=== PATIENT | male | born 1995 | race Caucasian/White ===

== ENCOUNTER 2022-07-25 12:58 | Emergency (ER) | payer MEDICAID, SELFPAY ==
[2022-07-25 13:14] VITALS: BP 177/82; PULSE 60; RESP 16; TEMP 36.8; O2SAT 98
--- NOTE | 2022-07-25 14:09 | ED.EXTPRO ---
HPI - Extremity Problem General Chief complaint: Extremity Problem,Nontraumatic Stated complaint: right hip pain X2 weeks Time Seen by Provider: 07/25/22 13:54 History of Present Illness HPI Narrative: 26-year-old male here for evaluation of right low back pain over the past week. Patient states that he has been exerting himself more frequently than usual lifting heavy boxes at work. Over the past several days he has noted a sharp pain in his right buttock that radiates down his right lower extremity. States it is sharp and shooting in nature. He has not attempted any pain medicine. He has been able to walk but she states it is painful. No direct trauma to the back. Denies any incontinence or retention of his bowel or bladder, saddle anesthesia, fevers or chills, nausea or vomiting. No IV drug use. Related Data Allergies Allergy/AdvReac Type Severity Reaction Status Date / Time No Known Allergies Allergy Verified 07/25/22 14:13 Review of Systems Review of Systems: Gen.: Denies fevers or chills Eyes: Denies eye pain or visual change ENT: Denies congestion Respiratory: Denies shortness of breath or cough CV: Denies chest pain or palpitations GI: Denies abdominal pain nausea, emesis or diarrhea denies burning, urgency, frequency or hematuria Musculoskeletal: Reports right back pain that radiates down his right leg Neuro: Denies numbness, tingling, weakness or focal weakness Skin: Denies rash Except as documented, all other systems reviewed and negative Exam Narrative: APPEARANCE: Well appearing, no pain in distress, well-nourished. Head: Normocephalic and atraumatic. EYES: PERRLA/EOMI, conjunctivae clear NOSE: No nasal drainage EARS: External ear normal in appearance THROAT: Oropharynx is clear. Mucous membranes are moist. NECK: Supple. No adenopathy, no masses. RESPIRATORY: Airway patent, respirations nonlabored. Clear to auscultation bilaterally, no rales, rhonchi, wheezing. CARDIOVASCULAR: Regular rate and rhythm without murmurs, rubs, or gallops. ABDOMINAL: Normoactive bowel sounds. Soft, nontender, nondistended. No rebound tenderness or guarding. MUSCULOSKELETAL: Straight leg raise positive on the right. No bony tenderness to palpation of C, T or L-spine. No bony tenderness to palpation of either hip. Extremities are warm and well-perfused. Moves all extremities well. No edema. NEURO: Normal speech. No focal neurologic deficits. SKIN: Skin is warm and dry. No rashes. PSYCHIATRIC: Normal affect/mood. Course Vital Signs Vital signs: Vital Signs Temperature 98.2 F 07/25/22 13:14 Pulse Rate 60 07/25/22 13:14 Respiratory Rate 16 07/25/22 13:14 Blood Pressure 177/82 H 07/25/22 13:14 Pulse Oximetry 98 07/25/22 13:14 Oxygen Delivery Room Air 07/25/22 13:14 Temperature 98.2 F 07/25/22 13:14 Pulse Rate 60 07/25/22 13:14 Respiratory Rate 16 07/25/22 13:14 Blood Pressure 177/82 H 07/25/22 13:14 Pulse Oximetry 98 07/25/22 13:14 Oxygen Delivery Room Air 07/25/22 13:14 MDM - Extremity (Nontraumatic) MDM Narrative Medical decision making narrative: 26-year-old male here for evaluation of pain to his right buttock over the past several days after lifting some heavy weights at work. He is nontoxic in appearance and has normal vital signs, no bony tenderness on exam or direct trauma to the area. Straight leg raise is positive. History and physical exam consistent with sciatica. No back pain red flags. He was given p.o. meds in the ED, encouraged him to follow-up with his primary care doctor as he may need low back imaging if his symptoms persist. Return precautions were discussed and he voiced understanding. Discharge Plan Discharge Clinical Impression: Sciatica Patient Disposition: Home, Self-Care Condition: Stable Instructions: Antibiotic Form, Sciatica (ED) Additional Instructions: Your symptoms today are consistent with sciatica. Alternate between Tyleno
[2022-07-25] MEDS: ACETAMINOPHEN 325 MG TABLET 650 MG PO (14:25)
[2022-07-25] MEDS: KETOROLAC 30 MG/ML VIAL (*BKC) IM (14:25)
[2022-07-25] MEDS: CYCLOBENZAPRINE HCL 5 MG TABLET PO (14:25)
== END 2022-07-25 14:39 | disposition home or self-care (01) ==
PROVIDERS: Emergency Provider Physician Assistant
DX: M54.41 Lumbago with sciatica, right side (principal)
CPT/HCPCS: 96372; 99283; A9270; J1885

== ENCOUNTER 2022-12-17 09:47 | Emergency (ER) | payer MEDICAID, SELFPAY ==
[2022-12-17 10:11] VITALS: BP 175/100; PULSE 74; RESP 14; TEMP 36.4; O2SAT 99
[2022-12-17 11:41] LABS: Basophils Absolute Auto 0.1 K/mm3 (0.0-0.1); Basophils Percent Auto 0.4 % (0.2-1.2); Eosinophils Absolute Auto 0.3 K/mm3 (0-0.3); Eosinophils Percent Auto 2.7 % (0-4.4); Hematocrit 43.2 % (42.0-52.0); Hemoglobin 14.6 g/dL (14.0-18.0); Immature Granulocyte Absolute 0.05 K/mm3 (0.00-0.031); Immature Granulocyte Percent A 0.4 % (0-0.5); Lymphocytes Absolute Auto 2.55 K/mm3 (0.9-3.2); Lymphocytes Percent Auto 20.5 % (18.3-44.2); Mean Corpuscular HGB Conc 33.8 g/dl (32-36); Mean Corpuscular Hemoglobin 30.5 pg (26-34); Mean Corpuscular Volume 90.2 fl (80-100); Mean Platelet Volume 10.2 fl (7.4-10.4); Monocytes Absolute Auto 0.9 K/mm3 (0.1-0.6); Monocytes Percent Auto 7.1 % (2.6-8.5); Neutrophils Absolute Auto 8.6 K/mm3 (1.3-6.7); Neutrophils Percent Auto 68.9 % (45.5-73.1); Platelet Count Result 236 k/mm3 (150-375); Red Blood Count 4.79 M/mm3 (4.6-6.20); Red Cell Distribution Width 12.2 % (11.5-14.5); White Blood Count 12.5 K/mm3 (4.5-10.0)
[2022-12-17 11:52] LABS: Alanine Aminotransferase 45 U/L (6-50); Albumin Level 4.5 g/dL (3.5-5.1); Alkaline Phosphatase 49 U/L (38-126); Anion Gap 3 mmol/L (8-16); Aspartate Amino Transferase 38 U/L (17-59); Bilirubin,Total 1.5 mg/dL (0.2-1.3); Blood Urea Nitrogen 17 mg/dL (9-20); Calcium 9.1 mg/dL (8.4-10.2); Carbon Dioxide 33 mmol/L (22-30); Chloride 102 mmol/L (98-107); Estimated CRCL calculation 163 ml/min; Estimated Glomerular Filt Rate > 60; Glucose 100 mg/dL (65-110); Potassium 4.1 mmol/L (3.4-5.0); Sodium 138 mmol/L (137-145)
[2022-12-17 11:56] LABS: INR 0.9; Prothrombin Time 12.8 Seconds (11.1-14.7)
--- NOTE | 2022-12-17 12:20 | ED.GENADULT ---
HPI - General Adult General Chief complaint: Unspecified Stated complaint: GI Bleed Time Seen by Provider: 12/17/22 10:55 History of Present Illness HPI narrative: This is a 27-year-old male with past history of hemorrhoids, who presents emergency department with bright red blood per rectum and some lightheadedness. The patient states today he had a bowel movement that was more painful than usual and he noted a significant amount of bright red blood in the toilet. He felt some lightheadedness at the time that has since resolved. He has no other abdominal pain or bleeding elsewhere. Related Data Allergies Allergy/AdvReac Type Severity Reaction Status Date / Time No Known Allergies Allergy Verified 07/25/22 14:13 Review of Systems Review of Systems: CONSTITUTIONAL: Denies fever, chills, or sweats. CARDIOVASCULAR: Denies chest pain, palpitations, or edema. RESPIRATORY: Denies cough or dyspnea. GASTROINTESTINAL: Bright red blood per rectum denies abdominal pain, nausea, vomiting, or diarrhea. GENITOURINARY: Denies dysuria or hematuria. SKIN: Denies rash or itching. MUSCULOSKELETAL: Denies back pain, joint pain, or myalgia. NEUROLOGIC: Denies headache, numbness, dizziness, or weakness. PSYCHIATRIC: Denies anxiety or depression. [facility] Past Medical History Medical History (Updated 12/18/22 @ 00:00 by Wu Muhammad) External hemorrhoids Surgical History Surgical History (Updated 12/17/22 @ 12:22 by Андрей Gill MD) No significant past surgical history Social History Social History (Updated 12/17/22 @ 12:22 by Андрей Gill MD) Smoking status: Never smoker Alcohol intake: never Substance use: never Exam Narrative: GENERAL: Well-developed, well-nourished, and in no acute distress. HEAD: Normocephalic, atraumatic. EYES: PERRLA and EOMI. CHEST: Clear to auscultation. No respiratory distress. No wheezes rales or rhonchi HEART: Regular rate and rhythm. No murmur heard. Normal peripheral pulses. ABDOMEN: Soft, nontender, nondistended, normal active bowel sounds. RECTAL: External hemorrhoid noted at the 9 o'clock position. There is tenderness with digital rectal exam and small amount of bright red blood. NEURO: No focal deficits. Alert and oriented x3. PSYCH: Normal mood and affect. Course Course Emergency Course: 12:23 - Exam is consistent with external hemorrhoids. The patient's hemoglobin is 14.6. White blood cell count slightly elevated at 12.5. Coags within normal limits. Chemistries demonstrate slight total bilirubin elevation of 1.5 but are otherwise unremarkable. Will discharge. Discussed return emerged precautions including signs/symptoms of symptomatic anemia. The patient voiced understanding and is comfortable with the plan. All questions answered to his satisfaction. Vital Signs Vital signs: Vital Signs Temperature 97.6 F 12/17/22 10:11 Pulse Rate 74 12/17/22 10:11 Respiratory Rate 14 12/17/22 10:11 Blood Pressure 175/100 H 12/17/22 10:11 Pulse Oximetry 99 12/17/22 10:11 Oxygen Delivery Room Air 12/17/22 10:11 Temperature 97.6 F 12/17/22 10:11 Pulse Rate 74 12/17/22 10:11 Respiratory Rate 14 12/17/22 10:11 Blood Pressure 175/100 H 12/17/22 10:11 Pulse Oximetry 99 12/17/22 10:11 Oxygen Delivery Room Air 12/17/22 10:11 Medical Decision Making MDM Narrative Medical decision making narrative: Plan: Labs, coags, reassess Differential Diagnosis Differential Diagnosis: Hemorrhoids, anal fissure, symptomatic anemia, metabolic abnormality, other Vital Signs Vital Signs: Vital Signs Temperature 97.6 F 12/17/22 10:11 Pulse Rate 74 12/17/22 10:11 Respiratory Rate 14 12/17/22 10:11 Blood Pressure 175/100 H 12/17/22 10:11 Pulse Oximetry 99 12/17/22 10:11 Oxygen Delivery Room Air 12/17/22 10:11 Temperature 97.6 F 12/17/22 10:11 Pulse Rate 74 12/17/22 10:11 Respiratory Rate 14
== END 2022-12-17 12:49 | disposition home or self-care (01) ==
PROVIDERS: Emergency Provider Preventive Medicine Aerospace Medicine
DX: K64.4 Residual hemorrhoidal skin tags (principal); K62.5 Hemorrhage of anus and rectum
CPT/HCPCS: 36415; 80053; 85025; 85610; 99283

== ENCOUNTER 2025-02-08 23:28 | Emergency (ER) | payer OTHER, SELFPAY ==
--- NOTE | ~2025-02-08 | XR_ITS ---
EXAM/ PROCEDURE: XR forearm LT 2V - 02/08/2025 23:45 CDT HISTORY: 29 years old Male with injury COMPARISON: None available TECHNIQUE: Three view(s) FINDINGS/ IMPRESSION: There are no fractures or dislocations.Joint spaces are within normal limits. Reviewed, dictated and finalized at location A.
--- NOTE | ~2025-02-08 | XR_ITS ---
EXAM/ PROCEDURE: XR wrist LT min 3V - 02/08/2025 23:45 CDT HISTORY: 29 years old Male with injury COMPARISON: None available TECHNIQUE: Three view(s) FINDINGS/ IMPRESSION: There are no fractures or dislocations.Joint spaces are within normal limits. Reviewed, dictated and finalized at location A.
[2025-02-08 23:29] VITALS: BP 141/86; PULSE 82; RESP 16; TEMP 36.8; O2SAT 99
[2025-02-09 02:45] VITALS: BP 123/77; PULSE 73; RESP 16; O2SAT 98
--- NOTE | 2025-02-09 03:52 | ED_ITS ---
HPI - Extremity Injury (Upper) General Chief Complaint: Extremity Injury, Upper Stated Complaint: left wrist injury Time Seen by Provider: 02/09/25 03:42 History of Present Illness HPI narrative: 29-year-old otherwise healthy male presenting with swelling and pain to the dorsal lateral aspect of his left forearm. 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 States that he feels like he may have overdone it recently. Knows that he is started developing pain and swelling to the lateral outside compartment his left forearm that slowly radiated into his thumb. 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 No sensory deficits. No traumatic injuries. No other pain, no pain extending to the elbow or towards the shoulder. No paresthesias or tingling in the thumb or fingers. No recent bug bites, puncture wounds or any other traumatic injuries to his knowledge. Has been in his normal state of health recently. Related Data Allergies Allergy/AdvReac Type Severity Reaction Status Date / Time No Known Allergies Allergy Verified 02/09/25 02:45 Review of Systems Review of Systems: As reviewed above in HPI [facility] Past Medical History Medical History External hemorrhoids Surgical History Surgical History No significant past surgical history Social History Social History Smoking status: Never smoker Alcohol intake: never Substance use: never Exam Narrative: GENERAL: [Well-appearing, well-nourished, and in no acute distress.] HEAD: [Normocephalic, atraumatic.] EYES: [PERRLA and EOMI.] ENT: Nares clear, no rhinorrhea or epistaxis. Mucous membranes moist. NECK: Supple. CHEST: [Clear to auscultation. No respiratory distress.] HEART: [Regular rate and rhythm]. No murmur heard. [Normal peripheral pulses.] ABDOMEN: [Soft, nondistended], [nontender], [No rigidity or guarding] EXTREMITIES: Swelling is appreciated over the dorsal lateral left forearm without any overlying skin changes concerning for infectious process or cellulitis. No redness erythema or warmth to the skin. Swelling seems isolated over the distribution of the pronator muscles into the left thumb consistent with patient's history of repetitive use injury. Slurry Blender strength 5/5, able to oppose each digit, no paresthesias in 2+ radial pulses. Soft compartments overall. SKIN: Warm, dry, no rash. NEURO: [No focal deficits]. Alert and oriented [x3.] PSYCH: [Normal mood and affect.] Course Vital Signs Vital signs: Vital Signs Temperature 36.8 C 02/08/25 23:29 Pulse Rate 82 02/08/25 23:29 Respiratory Rate 16 02/08/25 23:29 Blood Pressure 141/86 H 02/08/25 23:29 Pulse Oximetry 99 02/08/25 23:29 Oxygen Delivery Room Air 02/08/25 23:29 Temperature 36.8 C 02/08/25 23:29 Pulse Rate 67 02/09/25 05:00 Respiratory Rate 19 02/09/25 05:00 Blood Pressure 141/72 H 02/09/25 05:00 Pulse Oximetry 98 02/09/25 05:00 Oxygen Delivery Room Air 02/08/25 23:29 MDM - Extremity Injury (Upper) MDM Narrative Medical decision making narrative: 29-year-old otherwise healthy male presenting with swelling and pain to the dorsal lateral aspect of his left forearm. 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 States that he feels like he may have overdone it recently. Knows that he is started developing pain and swelling to the lateral outside compartment his left forearm that slowly radiated into his thumb. 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 No sensory deficits. No traumatic injuries. No other pain, no pain extending to the elbow or towards the shoulder. No paresthesias or tingling in the thumb or fingers. No recent bug bites, puncture wounds or any other traumatic injuries to his knowledge. Has been in his normal state of health recently. Swelling is appreciated over the dorsal lateral left forearm without any overlying skin changes concerning for infectious process or cellulitis. No redness erythema or warmth to the skin. Swelling seems isolated over the distribution of the pronator muscles into the left thumb consistent with patient's history of repetitive use injury. Slurry Blender strength 5/5, able to oppose each digit, no paresthesias in 2+ radial pulses. Soft compartments overall. Differential includes overuse injury, pronator syndrome, less likely myofascial inflammation or myositis. Low suspicion infectious process such as cellulitis based on exam. Patient is hemodynamically stable, x-rays obtained in triage that showed no acute osseous in the forearm or wrist. Symptoms consistent with overuse injury and he was given anti-inflammatories including Toradol IM and Toradol p.o. upon discharge. Discussed rest, ice, compression and even elevation to the level of the heart when sleeping as well as some workplace medications until fully healed. If symptoms recur we did refer him to Orthopedics. Patient expressed understanding of the instructions and safe for discharge home at this time. Medical Records Attestation: I reviewed the patient's medical records. Imaging Data Attestation: I personally reviewed and interpreted this imaging study as follows: My impression: No acute osseous abnormalities Discharge Plan Discharge Clinical Impression: Overuse injury, Brachioradialis muscle tenderness Patient Disposition: Home Condition: Stable Instructions: Antibiotic Form, Musculoskeletal Pain (ED) Additional Instructions: Symptoms consistent with overuse injury to the brachial radialis muscle area of the left forearm. We will prescribe you high strength anti-inflammatories as well as lidocaine patches and Robaxin for muscle relaxation. Follow-up with regular doctor. If symptoms persist despite therapies or worsen follow-up with orthopedics and return with any emergent concerns. No broken bones on x-ray. Patient Language: Thai Prescriptions: New ketorolac 10 mg tablet 10 mg PO Q8H PRN (Reason: pain) 5 Days Qty: 20 0RF Rx Instructions: maximum total duration of 5 days from all oral, intranasal, or parenteral formulations methocarbamol 750 mg tablet 750 mg PO TID PRN (Reason: pain) Qty: 20 0RF lidocaine 5 % adhesive patch,medicated 1 patch topical DAILY Qty: 15 0RF Rx Instructions: leave on most painful area for up to 12 hrs No Action cyclobenzaprine 5 mg tablet 5 mg PO HS PRN (Reason: muscle spasm) Qty: 10 0RF hydrocortisone acetate 25 mg suppository 25 mg RECTAL DAILY Qty: 12 0RF Follow-up/Referrals: Eloisa,Catherine Blair, FORENSIC MEDICAL EXAMINER [Primary Care Provider] - Stand Alone Forms: Work/School Release IP Time of Disposition: 03:58
[2025-02-09] MEDS: KETOROLAC (*BKC) 60 MG/2 ML VIAL IM (04:56)
[2025-02-09 05:00] VITALS: BP 141/72; PULSE 67; RESP 19; O2SAT 98
== END 2025-02-09 05:00 | disposition home or self-care (01) ==
PROVIDERS: Emergency Provider Student in an Organized Health Care Education/Training Program
DX: M70.832 Other soft tissue disorders related to use, overuse and pressure, left forearm (principal)
CPT/HCPCS: 73090; 73110; 96372; 99283; J1885

== ENCOUNTER 2025-05-12 04:19 | Emergency (ER) | payer OTHER, SELFPAY ==
--- NOTE | ~2025-05-12 | CT_ITS ---
CT HEAD NON-CONTRAST Clinical History: headache Comparison: None Technique: Unenhanced axial images skull base to vertex Coronal, sagittal reformats CT images acquired with automatic exposure control for dose reduction DLP: 530 mGy-cm Findings: Sulci, ventricles: Unremarkable. No intracerebral hemorrhage. No evidence acute territorial infarct. No mass effect, midline shift. Bony calvarium intact. Visualized paranasal sinuses: Clear. Mastoid air cells: Clear. IMPRESSION: 1. No acute intracranial findings. Reviewed, dictated and finalized at location R. L ENGINEER IN TRAINING
[2025-05-12 04:27] VITALS: BP 155/110; PULSE 69; RESP 18; TEMP 36.4; O2SAT 99
[2025-05-12 05:01] LABS: Hematocrit 44.2 % (42.0-52.0); Hemoglobin 14.8 g/dL (14.0-18.0); Immature Granulocyte Percent A 0.4 % (0-0.5); Lymphocytes Absolute Auto 2.31 K/mm3 (0.9-3.2); Mean Corpuscular HGB Conc 33.5 g/dl (32-36); Mean Corpuscular Hemoglobin 30.6 pg (26-34); Mean Corpuscular Volume 91.3 fl (80-100); Nucleated Red Blood Cells Absolute Auto 0.000 K/mm3 (0.0-0.012); Nucleated Red Blood Cells Perc 0.0 % (0.0-0.2); Platelet Count Result 207 k/mm3 (150-375); Red Blood Count 4.84 M/mm3 (4.6-6.20); White Blood Count 9.3 K/mm3 (4.5-10.0)
[2025-05-12 05:03] LABS: Add Urine Microscopic? NO; Appearance Urine Clear (Clear); Glucose Urine UA Negative (Negative); Leukocyte Esterase Ur Negative LEU/UL (Negative); Nitrate Urine Negative (Negative); Specific Grav Ur 1.028 (1.001-1.035)
[2025-05-12 05:12] LABS: Alanine Aminotransferase 28 U/L (6-50); Albumin Level 4.4 g/dL (3.5-5.1); Alkaline Phosphatase 53 U/L (38-126); Anion Gap 8 mmol/L (4-12); Aspartate Amino Transferase 36 U/L (17-59); Bilirubin,Total 1.5 mg/dL (0.2-1.3); Blood Urea Nitrogen 19 mg/dL (9-20); Calcium 8.9 mg/dL (8.4-10.2); Carbon Dioxide 30 mmol/L (22-30); Chloride 100 mmol/L (98-107); Estimated CRCL calculation 137 ml/min; Estimated Glomerular Filt Rate > 60; Glucose 114 mg/dL (65-110); Lipase 85 U/L (23-300); Potassium 4.3 mmol/L (3.4-5.0); Sodium 138 mmol/L (137-145); Total Protein 7.6 g/dL (6.3-8.2)
[2025-05-12 05:31] VITALS: BP 137/97; PULSE 70; RESP 13; O2SAT 97
[2025-05-12 06:46] VITALS: BP 124/81; PULSE 79; RESP 18; O2SAT 99
[2025-05-12 07:01] VITALS: BP 120/72; PULSE 72; RESP 14; O2SAT 99
--- NOTE | 2025-05-12 07:24 | ED_ITS ---
HPI - General Adult General Chief complaint: Headache Stated complaint: headache / emesis Time Seen by Provider: 05/12/25 06:57 History of Present Illness HPI narrative: 29-year-old male presented to the emergency department for evaluation for headache that started last night approximately 330. Patient states that he has a headache behind his left eye that he described as throbbing or stabbing. Patient did take Tylenol last night and upon arrival emergency department states headache is improved but is not yet fully resolved. Patient denies any significant history of headaches but does have a prior history of a CVA approximately 5 years ago. Patient does have history of hypertension but his blood pressure as currently control with medications. Patient denies any other associated numbness or weakness. Patient denies any other past medical history. Patient was well-appearing at time of evaluation. Related Data Allergies Allergy/AdvReac Type Severity Reaction Status Date / Time No Known Allergies Allergy Verified 05/12/25 04:19 Review of Systems 2 Review of Systems: All systems reviewed & are unremarkable except as noted in HPI and below PMFSH Past Medical History Medical History External hemorrhoids Surgical History Surgical History No significant past surgical history Social History Social History Smoking status: Never smoker Alcohol intake: never Substance use: never Exam 2 Narrative: APPEARANCE: Well appearing, no pain, no distress, well-nourished. HEAD: normocephalic, atraumatic. EYES: PERRLA/EOMI, conjunctivae clear. NOSE: Normal no drainage EARS:TMS clear with good light reflex. THROAT: Pharynx clear, no exudate. NECK: Supple. No adenopathy, no masses. RESPIRATORY: Airway patent, respirations nonlabored. Clear to auscultation bilaterally, no rales, rhonchi, wheezing. CARDIOVASCULAR: Regular rate and rhythm without murmurs rubs or gallops. ABDOMINAL: Soft, nontender, nondistended, normal bowel sounds MUSCULOSKELETAL: Moves all extremities. Strength/ROM intact, No edema, No calf tenderness. NEURO: Alert. Cranial nerves II through XII intact. Good gait. Good coordination SKIN: Warm, dry. Normal Color Course Vital Signs Vital signs: Vital Signs Temperature 97.5 F L 05/12/25 04:27 Pulse Rate 69 05/12/25 04:27 Respiratory Rate 18 05/12/25 04:27 Blood Pressure 155/110 H 05/12/25 04:27 Pulse Oximetry 99 05/12/25 04:27 Oxygen Delivery Room Air 05/12/25 04:27 Temperature 97.5 F L 05/12/25 04:27 Pulse Rate 83 05/12/25 07:35 Respiratory Rate 18 05/12/25 07:35 Blood Pressure 139/77 05/12/25 07:35 Pulse Oximetry 100 05/12/25 07:35 Oxygen Delivery Non-Rebreather Mask 05/12/25 07:25 Oxygen Flow Rate 10 05/12/25 07:25 Medical Decision Making MDM Narrative Medical decision making narrative: 29-year-old male presenting ED for evaluation for a throbbing headache behind his left eye. Patient is currently afebrile with no leukocytosis hemoglobin of 14.8. No acute abnormalities on his CMP UA was negative for infection. Patient has a normal neuro exam. Patient does describe headache similar to a cluster headache. He is being treated with medications through IV including IV Toradol, IV Benadryl, lactated Ringer's and IV Compazine. Patient was also placed high- flow oxygen for the cluster headache. on re-evaluation patient states he has headache is resolved. CT scan showed no acute intracranial abnormality. Patient will be discharged home. Patient was updated results of the workup and plan for treatment for home. All questions concerns were addressed. Differential Diagnosis Differential Diagnosis: Subarachnoid hemorrhage, migraine, headache, cluster headache, tension headache Vital Signs Vital Signs: Vital Signs Temperature 97.5 F L 05/12/25 04:27 Pulse Rate 69 05/12/25 04:27 Respiratory Rate 18 05/12/25 04:27 Blood Pressure 155/110 H 05/12/25 04:27 Pulse Oximetry 99 05/12/25 04:27 Oxygen Delivery Room Air 05/12/25 04:27 Temperature 97.5 F L 05/12/25 04:27 Pulse Rate 83 05/12/25 07:35 Respiratory Rate 18 05/12/25 07:35 Blood Pressure 139/77 05/12/25 07:35 Pulse Oximetry 100 05/12/25 07:35 Oxygen Delivery Non-Rebreather Mask 05/12/25 07:25 Oxygen Flow Rate 10 05/12/25 07:25 Lab Data Lab results reviewed: Yes I reviewed the patient's lab results. 05/12/25 04:52 05/12/25 04:52 Labs: Lab Results 05/12/25 05/12/25 Range/Units 04:52 04:54 WBC 9.3 (4.5-10.0) K/mm3 RBC 4.84 (4.6-6.20) M/mm3 Hgb 14.8 (14.0-18.0) g/dL Hct 44.2 (42.0-52.0) % MCV 91.3 (80-100) fl MCH 30.6 (26-34) pg MCHC 33.5 (32-36) g/dl RDW 12.0 (11.5-14.5) % Plt Count 207 (150-375) k/mm3 MPV 9.8 (7.4-10.4) fl Immature Gran % (Auto) 0.4 (0-0.5) % Neut % (Auto) 62.0 (45.5-73.1) % Lymph % (Auto) 24.8 (18.3-44.2) % Lynn % (Auto) 9.1 H (2.6-8.5) % Eos % (Auto) 3.3 (0-4.4) % Baso % (Auto) 0.4 (0.2-1.2) % Lymph # (Auto) 2.31 (0.9-3.2) K/mm3 Lynn # (Auto) 0.9 H (0.1-0.6) K/mm3 Eos # (Auto) 0.3 (0-0.3) K/mm3 Baso # (Auto) 0.0 (0.0-0.1) K/mm3 Abs Immat Gran (auto) 0.04 H (0.00-0.031) K/mm3 Absolute Neuts (auto) 5.8 (1.3-6.7) K/mm3 Absolute Nucleated RBC 0.000 (0.0-0.012) K/mm3 Nucleated RBC % 0.0 (0.0-0.2) % Sodium 138 (137-145) mmol/L Potassium 4.3 (3.4-5.0) mmol/L Chloride 100 (98-107) mmol/L Carbon Dioxide 30 (22-30) mmol/L Anion Gap 8 (4-12) mmol/L BUN 19 (9-20) mg/dL Creatinine 0.88 (0.7-1.3) mg/dL Estim Creat Clear Calc 137 ml/min Estimated GFR > 60 (59 - ) Glucose 114 H (65-110) mg/dL Calcium 8.9 (8.4-10.2) mg/dL Total Bilirubin 1.5 H (0.2-1.3) mg/dL AST 36 (17-59) U/L ALT 28 (6-50) U/L Alkaline Phosphatase 53 (38-126) U/L Total Protein 7.6 (6.3-8.2) g/dL Albumin 4.4 (3.5-5.1) g/dL Lipase 85 (23-300) U/L Urine Color Yellow (Yellow) Urine Appearance Clear (Clear) Urine pH 5.5 (5.0-9.0) Ur Specific [place] 1.028 (1.001-1.035) Urine Protein Negative (Negative) mg/dL Urine Glucose (UA) Negative (Negative) mg/dL Urine Ketones Trace H (Negative) mg/dL Ur Blood (Man) Negative (Negative) Urine Nitrate Negative (Negative) Urine Bilirubin Negative (Negative) Urine Urobilinogen 1.0 (<2.0) mg/dL Leukocyte Esterase Rfl Negative (Negative) RADHA/UL Imaging Data Radiologist's impression: Impressions Head CT 05/12/25 07:29 IMPRESSION: 1. No acute intracranial findings. Discharge Plan Discharge Clinical Impression: Headache Patient Disposition: Home Condition: Stable Instructions: Antibiotic Form, Cluster Headache (ED), Acute Headache (DC) Additional Instructions: Tylenol and ibuprofen for pain control. Have close follow-up with your primary care physician. if you have any worsening symptoms then please call or return to the emergency department. Patient Language: Georgian Prescriptions: No Action ketorolac 10 mg tablet 10 mg PO Q8H PRN (Reason: pain) 5 Days Qty: 20 0RF Rx Instructions: maximum total duration of 5 days from all oral, intranasal, or parenteral formulations methocarbamol 750 mg tablet 750 mg PO TID PRN (Reason: pain) Qty: 20 0RF lidocaine 5 % adhesive patch,medicated 1 patch topical DAILY Qty: 15 0RF Rx Instructions: leave on most painful area for up to 12 hrs cyclobenzaprine 5 mg tablet 5 mg PO HS PRN (Reason: muscle spasm) Qty: 10 0RF hydrocortisone acetate 25 mg suppository 25 mg RECTAL DAILY Qty: 12 0RF Follow-up/Referrals: Eloisa,Catherine Blair, PROCESSES CHEMICAL DESIGN ENGINEER [Primary Care Provider, Unknown] Stand Alone Forms: Work/School Release IP
[2025-05-12 07:25] VITALS: O2SAT 100
[2025-05-12 07:35] VITALS: BP 139/77; PULSE 83; RESP 18; O2SAT 100
[2025-05-12] MEDS: LACTATED RINGERS 1,000 ML 999 ML IV CONT (07:35)
[2025-05-12] MEDS: PROCHLORPERAZINE EDISYLATE 10 MG/2 ML VIAL IV PUSH (07:37)
[2025-05-12] MEDS: KETOROLAC 15 MG/ML VIAL (*BKC) IV PUSH (07:53)
== END 2025-05-12 09:11 | disposition home or self-care (01) ==
LOC: ANHED 08:50
PROVIDERS: Emergency Medicine; Emergency Provider Emergency Medicine
DX: R51.9 Headache, unspecified (principal); I10 Essential (primary) hypertension; Z86.73 Personal history of transient ischemic attack (TIA), and cerebral infarction without residual deficits
CPT/HCPCS: 36415; 70450; 80053; 81003; 83690; 85025; 96361; 96374; 96375; 99284; J0780; J1200; J1885; J7120